=== PATIENT | female | born 1945 | race Caucasian/White ===

== ENCOUNTER 2022-02-11 14:29 | Emergency (ER) | payer OTHER, SELFPAY ==
--- NOTE | 2022-02-11 14:37 | ED.GENADUL_ITS ---
Discharge Plan Disposition Patient Disposition: HOME Condition: Stable Discharge Details Clinical Impression: Dog bite of left lower leg Primary Care Provider: Margaret,Local ED Provider: Malaika Solares Home Meds and New Rx's Prescriptions: New amoxicillin-pot clavulanate 875-125 mg tablet 1 tab PO BID 9 Days Qty: 18 0RF No Action metoprolol succinate 50 mg Tablet Extended Release 24 Hr 50 mg PO DAILY amlodipine 5 mg Tablet 5 mg PO DAILY aspirin [Aspir-81] 81 mg Tablet,Delayed Release (Dr/Ec) 81 mg PO .QHS simvastatin 20 mg Tablet 20 mg PO .QHS ursodiol 300 mg Capsule 300 mg PO BID metoprolol succinate 25 mg Tablet Extended Release 24 Hr 25 mg PO .QHS losartan 100 mg Tablet 100 mg PO DAILY Discharge Instructions Instructions: Animal Bite (ED) Additional Instructions: Your x-ray today is reassuring and shows no evidence of foreign body or fracture. It is important to keep your leg elevated as much as possible to improve blood flow and wound healing. Keep wound clean and dry. Cover wound with bandage if risk of contamination. Otherwise you can keep the wound open to air if resting at home to allow edges to dry and heal. A prescription for antibiotics has been sent electronically to your pharmacy to take as directed until finished. Follow-up with your primary care doctor in 1 week. Return to the emergency department with any worsening or new concerning symptoms. Discharge Data Discharge Physician: Malaika Solares Medical Decision Making 76-year-old female presents with dog bite to her left leg while attempting to break up a fight between her 2 dogs who are up-to-date on the vaccinations. Patient appears comfortable and nontoxic. She has 2 puncture wounds/laceration/skin tears to her left anterior distal leg. The skin appears thin and not amenable to sutures considering the puncture wound and the integrity of the thin skin which likely will not withhold suture placement. Discussed the concern for suture placement with risk of infection as well. We will give a Boostrix and Augmentin. Patient referred for x-ray to rule out fracture and foreign body which was unremarkable. Her leg wounds were irrigated and loosely closed with Steri-Strips. Advised on the importance of proper wound care and keeping leg elevated to improve wound healing. A prescription for Augmentin sent electronically to her pharmacy. She is visiting from [place] and has a follow-up appoint with her primary care doctor in 2 weeks. Usual and customary return precautions given prior to discharge. Medical Records Medical records reviewed: Yes I reviewed the patient's medical records. Imaging Data Radiologic Study: Radiologist's impression: ?XR TIB/FIB LT CLINICAL HISTORY: ? s/p dog bite, r/o fracture vs foreign body. ? TECHNIQUE:? 2D digital imaging was performed. COMPARISON:? No exams were available for comparison FINDINGS: Two views: There is no evidence of acute fracture.? No radiopaque foreign body.? No osseous lesions.? No radiographic evidence of osteomyelitis.? Chondrocalcinosis noted in the knee joint. HPI General Mode of arrival: ambulatory . Date/Time Provider Initiated Documentation: 02/11/22 14:37 . Limitations to Documentation: no limitations . Information obtained by: patient . HPI Narrative: Patient is a 76-year-old female presents with dog bite to her left leg sustained between her son's 2 dogs when trying to break up a fight prior to arrival. Patient states the dogs are up-to-date on their vaccinations. Patient states her last tetanus was 8 years ago. Patient states she was trying to break up a fight and placed her left leg in between the 2 dogs and sustained a laceration. She denies any other injuries. Related Data Home Medications Medication Instructions Recorded Confirmed amlodipine 5 mg tablet 5 mg PO DAILY 02/11/22 02/11/22 amoxicillin 875 mg-potassium 1 tab PO BID 9 days #18 tabs 02/11/22 clavulanate 125 mg tablet aspirin 81 mg tablet,delayed 81 mg PO .QHS 02/11/22 02/11/22 release losartan 100 mg tablet 100 mg PO DAILY 02/11/22 02/11/22 metoprolol succinate 25 mg 25 mg PO .QHS 02/11/22 02/11/22 tablet,extended release 24 hr metoprolol succinate 50 mg 50 mg PO DAILY 02/11/22 02/11/22 tablet,extended release 24 hr simvastatin 20 mg tablet 20 mg PO .QHS 02/11/22 02/11/22 ursodiol 300 mg capsule 300 mg PO BID 02/11/22 02/11/22 Previous Rx's Medication Instructions Recorded amoxicillin 875 mg-potassium 1 tab PO BID 9 days #18 tabs 02/11/22 clavulanate 125 mg tablet Allergies Allergy/AdvReac Type Severity Reaction Status Date / Time dust Allergy Uncoded 02/11/22 14:52 General Stated Complaint: AnimalBite Review of Systems All systems reviewed & are unremarkable except as noted in HPI and below Constitutional Constitutional: Reports as per HPI, Denies chills and Denies fever(s) Eyes Eyes: Denies blurry vision ENT Ears, Nose, Mouth, and Throat: Denies dizziness, Denies sore throat and Denies throat swelling Cardiovascular Cardiovascular: Denies chest pain and Denies dyspnea Respiratory Respiratory: Denies cough and Denies dyspnea Gastrointestinal Gastrointestinal: Denies abdominal pain, Denies diarrhea and Denies vomiting Genitourinary Genitourinary: Denies hematuria and Denies dysuria Musculoskeletal Musculoskeletal: Denies back pain and Denies numbness Integumentary/Breasts Skin/Breast: Denies lesions and Denies rash Neurologic Neurologic: Denies dizziness, Denies localized weakness and Denies numbness Allergic/Immunologic Allergic/Immunologic: Denies throat swelling PFSH All Active Problems (Updated 02/11/22 @ 15:01 by Malaika Solares DO) Dog bite of left lower leg (Acute) Medical History (Updated 02/11/22 @ 15:01 by Malaika Solares DO) CLL (chronic lymphocytic leukemia) HTN (hypertension) Hx of hyperlipidemia Surgical History (Updated 02/11/22 @ 15:01 by Malaika Solares DO) History of cataract surgery Hx of cholecystectomy Social History Smoking/Tobacco Use Status: Never Smoking risk assessment performed?: Yes Substance use type: does not use Exam Const General: cooperative, healthy appearing and no acute distress Orientation: alert, awake and oriented x3 HENMT Head: normal to inspection Mouth: oral mucosae normal Eyes General: appearance normal, both eyes and all related structures Neck Neck: normal visual inspection Resp Effort & Inspection: normal respiratory effort and able to speak in complete sentences Cardio Rate: regular rate Skin General skin exam: no rashes or lesions noted Neuro General: patient alert, patient awake and patient oriented x3 Motor: muscle tone normal throughout Extrem General: full ROM Ankle/foot/toe images: 1. 2 x 2 centimeter triangular-shaped puncture wound/laceration and skin tear. Bleeding controlled. 2. 2 x 3 cm sphere shaped puncture wound/laceration and skin tear. Bleeding controlled. Psych Appearance: grossly normal Affect: normal affect
[2022-02-11 14:39] VITALS: BP 155/70; PULSE 83; RESP 16; TEMP 36.6; O2SAT 98
--- NOTE | 2022-02-11 14:45 | DI.RAD_ITS ---
Exam(s) XR TIB/FIB LT EXAM: XR TIB/FIB LT CLINICAL HISTORY: s/p dog bite, r/o fracture vs foreign body. TECHNIQUE: 2D digital imaging was performed. COMPARISON: No exams were available for comparison FINDINGS: Two views: There is no evidence of acute fracture. No radiopaque foreign body. No osseous lesions. No radiogr aphic evidence of osteomyelitis. Chondrocalcinosis noted in the knee joint. IMPRESSION: DATA REPOSITORY: RADIATION DOSE DELIVERED:
--- NOTE | 2022-02-11 15:23 | DI.VRAD_ITS ---
PROCEDURE INFORMATION: Exam: XR Left Tibia and Fibula Exam date and time: 02/11/2022 3:07 PM Age: 76 years old Clinical indication: Other: S/P dog bite, R/O FX vs foreign body TECHNIQUE: Imaging protocol: Radiologic exam of the Left tibia and fibula. Views: 2 views. COMPARISON: No relevant images were readily available for comparison purposes. FINDINGS: Bones/joints: No acute fracture or dislocation. Soft tissues: no radiopaque foreign body. suspected small amount of subcutaneous gas. IMPRESSION: Suspected small amount of subcutaneous gas. Dictated and Authenticated by: Job Pool MD. Ordering:CINDA Dai MD
[2022-02-11] MEDS: Amoxicillin 875/Clav. 125 TAB PO (15:39)
--- NOTE | 2022-02-11 16:05 | NUR.NOTE ---
Spoke to the animal health officer Joao and faxed the report. Nursing Note:
[2022-02-11 16:22] VITALS: BP 155/70; PULSE 83; RESP 16; TEMP 36.6; O2SAT 98
== END 2022-02-11 16:33 | disposition home or self-care (01) ==
LOC: ER 14:57
PROVIDERS: Emergency Provider Physician Assistant
DX: S81.812A Laceration without foreign body, left lower leg, initial encounter (principal); I10 Essential (primary) hypertension; Z23 Encounter for immunization; W54.0XXA Bitten by dog, initial encounter; Y93.89 Activity, other specified
CPT/HCPCS: 90471; 99283; 73590; 99284